=== PATIENT | male | born 1950 | race Caucasian/White ===

== ENCOUNTER 2017-08-07 08:04 | Inpatient (IN) ==
--- NOTE | 2017-08-07 08:23 | EKG Report ---
Test Performed on : 08/07/2017 08:18:11 AM Test Reason : AMS Blood Pressure : / mmHG Vent. Rate : 084 BPM Atrial Rate : 084 BPM P-R Int : 184 ms QRS Dur : 096 ms QT Int : 390 ms P-R-T Axes : 030 -28 037 degrees QTc Int : 460 ms Normal sinus rhythm. Normal ECG No previous ECGs available Unconfirmed Result
--- NOTE | 2017-08-07 08:44 | Diag Imaging Result Doc PS360 ---
EXAM: CT HEAD W/O CONTRAST HISTORY: AMS TECHNIQUE: CT brain without contrast. Dose reduction protocol. COMPARISON: None. FINDINGS: No parenchymal hemorrhage. No epidural or subdural hematoma. No subarachnoid hemorrhage. No mass identified on this noncontrasted exam. No hydrocephalus. There is diffuse atrophy. Mild microvascular ischemic changes. No sinus opacification. IMPRESSION: 1.No hemorrhage 2.Atrophy with mild microvascular changes Electronically signed by Asa Alvarez 08/07/2017 8:42 AM
--- NOTE | 2017-08-07 08:44 | Diag Imaging Result Doc PS360 ---
EXAM: CHEST-1 VIEW HISTORY: AMS TECHNIQUE: Single view COMPARISON: None. FINDINGS: The lungs are well expanded. The heart is not enlarged. The vessels are not distended. There are no infiltrates. No effusion identified. IMPRESSION: Negative exam.. Electronically signed by Asa Alvarez 08/07/2017 8:42 AM
[2017-08-07 08:56] LABS: MANUAL DIFF NEEDED? NO
[2017-08-07 08:58] LABS: BASO% 0.4 % (0.0-0.8); EOS# 0.11 X1000 (0.0-0.7); HEMATOCRIT 47.7 % (42.0-52.0); HEMOGLOBIN 16.9 g/dL (14.0-18.0); IMM GRAN# 0.01 X1000 (0.0-0.04); IMM GRAN% 0.2 % (0.0-0.5); LYMPH# 1.23 X1000 (1.2-3.4); LYMPH% 22.7 % (20.5-51.1); MCH 31.3 PG (27-31); MCHC 35.4 g/dL (33-37); MCV 88.3 FL (81-99); MONO# 0.47 X1000 (0.11-0.59); MONO% 8.7 % (1.7-9.3); PLT 152 X1000 (130-400)
[2017-08-07 09:02] LABS: URINE CULTURE PL NEEDED? NO
[2017-08-07 09:06] LABS: UR AMPHETAMINES QUAL NONE DETECTED (NONE DETECT); UR BARBITUATES QUAL NONE DETECTED (NONE DETECT); UR BENZODIAZEPIN QUAL NONE DETECTED (NONE DETECT); UR CANNABINOIDS QUAL NONE DETECTED (NONE DETECT); UR COCAINE QUAL NONE DETECTED (NONE DETECT); UR MDMA QUAL NONE DETECTED (NONE DETECT); UR METHADONE QUAL NONE DETECTED (NONE DETECT); UR METHAMPHETAMINE QUAL NONE DETECTED (NONE DETECT); UR OPIATES QUAL NONE DETECTED (NONE DETECT); UR OXYCODONE QUAL NONE DETECTED (NONE DETECT); UR PCP QUAL NONE DETECTED (NONE DETECT); UR TCA QUAL NONE DETECTED (NONE DETECT)
[2017-08-07 09:12] LABS: INR 0.92 (0.86-1.15); PROTIME 13.1 Seconds (12.1-15.5)
[2017-08-07 09:13] LABS: PTT PL 25.2 Seconds (22.6-43.9)
[2017-08-07 09:19] LABS: AGAP 14; ALBUMIN 4.8 g/dL (3.5-5.0); ALKALINE PHOSPHATASE 54 U/L (32-122); BUN 8 mg/dL (8-22); CALCIUM 9.3 mg/dL (8.8-10.2); CHLORIDE 101 mmol/L (98-107); CK PROFILE 115 U/L (24-204); COSMO 279; GOT 19 U/L (10-34); GPT 15 U/L (10-44); POTASSIUM 3.8 mmol/L (3.5-5.1); SODIUM 141 mmol/L (136-145); TCO2 26 mmol/L (25-35); TOTAL PROTEIN 7.7 g/dL (6.3-8.3)
[2017-08-07 09:20] LABS: BILIRUBIN URINE NEGATIVE (NEGATIVE); BLOOD URINE NEGATIVE (NEGATIVE); CLARITY CLEAR (CLEAR); COLOR YELLOW; GLUCOSE URINE NEGATIVE (NEGATIVE); LEUKOCYTES URINE NEGATIVE (NEGATIVE); NITRITE URINE NEGATIVE (NEGATIVE); PROTEIN URINE NEGATIVE (NEGATIVE); SP GRAVITY URINE 1.005; UROBILINOGEN URINE NORMAL
[2017-08-07 09:21] LABS: URINE EPITHELIAL CELLS <10 /HPF (<10); URINE SOURCE CLEAN CATCH
--- NOTE | 2017-08-07 09:32 | PROVIDER DOCUMENTATION ---
This chart was entered by Marline Cardenas Scribe, acting as scribe for Gala Macias MD. HPI-Neurological Disorder - General Chief Complaint: Stroke-Like Symptoms Stated Complaint: STROKE LIKE SX Time Seen by Provider: 08/07/17 08:12 Source: patient Allergies/Adverse Reactions: Patient Allergies Allergy/AdvReac Type Severity Reaction Status Date / Time No Known Allergies Allergy Verified 08/07/17 09:04 - History of Present Illness-Neuro Nature of Presenting Problem: Pt is a 67 y/o M presents to the ED with left side weakness. Pt states symptoms started last night at 2030. Pt states was sitting on the couch and could not get up due to weakness. Pt states went to bed and woke this am with worsening weakness. Pt denies headache. Headache Location: denies: frontal, temporal, occipital, parietal, global Severity: reports: mild Onset/Duration: reports: last night (2029) Timing: reports: still present, getting worse Context: reports: other (left side weakness) Character of Altered Mental Status: reports: N/A Any recent trauma/injury?: reports: none Character of Deficits: reports: new weakness New weakness or altered sensation location:: reports: LUE, LLE Cognitive Baseline: alert, oriented x3 Gait Baseline: walks without assistance Associated Symptoms: reports: denies symptoms Similar Symptoms Previously?: Yes (present since last night ) Recently seen or treated by another doctor?: No Review of Systems - Adult - REVIEW OF SYSTEMS - ADULT Constitutional: reports: no symptoms reported Eyes: reports: no symptoms reported Ears, Nose, Mouth & Throat: reports: no symptoms reported Cardiovascular: reports: no symptoms reported Respiratory: reports: no symptoms reported Gastrointestinal: reports: no symptoms reported Genitourinary: reports: no symptoms reported Musculoskeletal: reports: muscle weakness (LUE and LLE). denies: back pain, joint pain, neck pain Integumentary: reports: no symptoms reported Neurological: reports: no symptoms reported Psychiatric: reports: no symptoms reported Endocrine: reports: no symptoms reported Hematologic/Lymphatic: reports: no symptoms reported Allergic/Immunologic: reports: no symptoms reported All Other Systems: Reviewed and Negative Past History - Adult - PAST MEDICAL HISTORY-ADULT Review of Records: reports: Nursing Assessment Review, Medications Reviewed, Social history reviewed & non-contributory. Major Childhood Illnesses: reports: denies history Cardiovascular: reports: denies history Respiratory: reports: denies history Gastrointestinal: reports: denies history Obstetrical/Gynecological: reports: denies history Genitourinary: reports: denies history Musculoskeletal: reports: denies history Neurological: reports: denies history Endocrine/Immune: reports: denies history Other Conditions: reports: denies history - PRIOR SURGERIES/PROCEDURES Surgical/Procedure History: reports: hernia repair - IMMUNIZATION STATUS Childhood Immunizations: See Nurse Assessment Flu Vaccine: See Nurse Assessment - FAMILY HISTORY Family History: reviewed, not pertinent - SOCIAL HISTORY Smoking: quit greater than 1 year, cigarettes Substance Use: denies Living Situation: family Physical Exam- Neurological - Physical Exam-Neuro Initial Vital Signs Reviewed: Yes General Appearance: appears well, alert, no apparent distress. negative: lethargic, slow to respond Eye Exam: bilateral eye: normal inspection, PERRL, EOMI HENMT: normocephalic/atraumatic. negative: dental decay, pharyngeal erythema Head Injury: no evidence of injury. negative: ecchymosis, lacerations Neck: normal inspection. negative: lymphadenopathy, tender lateral Respiratory: chest non-tender, lungs clear, normal breath sounds. negative: crackles, stridor Cardiovascular: normal peripheral pulses, regular rate, rhythm. negative: tachycardia, systolic murmur Abdominal Exam: normal bowel sounds, non tender, soft. negative: guarding, rebound Lymphatic: no adenopathy. negative: enlargement, streaking Extremity: normal inspection. 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 negative: abnormal speech, facial droop Coordination/Gait: normal gait. negative: abnormal gait Motor/Sensory: no motor deficit, no sensory deficit, pronator drift (L). negative: pronator drift (R), sensory deficit, weak motor strength RUE, weak motor strength LUE, weak motor strength RLE, weak motor strength LLE Neurologic: grossly normal. negative: aphasia, facial droop Integumentary: normal color, normal turgor, warm/dry. negative: diaphoresis, ecchymosis, erythema, laceration(s), rash Psych/Mental Status: normal mood/affect, oriented x 3. negative: paranoid, tearful Progress - PLAN OF CARE/RESULTS Progress/Plan/Lab Results: Vital Signs - 8 hr 08/07/17 08:06 Temperature 97.6 F Pulse Rate 91 H Respiratory Rate 20 Blood Pressure 190/107 O2 Sat by Pulse Oximetry 95 Laboratory Results - last 24 hr 08/07/17 08/07/17 08/07/17 08:40 08:40 08:45 WBC RBC Hgb Hct MCV MCH MCHC RDW Std Deviation Plt Count MPV Immature Gran % (Auto) Neut % (Auto) Lymph % (Auto) [place] % (Auto) Eos % (Auto) Baso % (Auto) Immature Gran # (Auto) Neut # (Auto) Lymph # (Auto) [place] # (Auto) Eos # (Auto) Baso # (Auto) PT INR APTT (Factor Assay) Sodium 141 Potassium 3.8 Chloride 101 Carbon Dioxide 26 Anion Gap 14 BUN 8 Creatinine 0.8 Estimated GFR/1.73 m2 > 60 BUN/Creatinine Ratio 10 Glucose 90 Calculated Osmolality 279 Calcium 9.3 Total Bilirubin 1.60 H AST 19 ALT 15 Alkaline Phosphatase 54 Creatine Kinase 115 Troponin T Total Protein 7.7 Albumin 4.8 Globulin 3.0 Albumin/Globulin Ratio 2.0 Plasma Lactate Urine Source CLEAN CATCH Urine Color YELLOW Urine Clarity CLEAR Urine pH 7.0 Ur Specific [place] 1.005 Urine Protein NEGATIVE Urine Ketones NEGATIVE Urine Blood NEGATIVE Urine Nitrite NEGATIVE Urine Bilirubin NEGATIVE Urine Urobilinogen NORMAL Urine WBC NEGATIVE Ur Epithelial Cells <10 Urine Glucose NEGATIVE Urine Opiates Screen NONE DETECTED Ur Oxycodone Screen NONE DETECTED Urine Methadone Screen NONE DETECTED Ur Barbituates Screen NONE DETECTED Ur Tricyclics Screen NONE DETECTED Ur Phencyclidine Scrn NONE DETECTED Ur Amphetamines Screen NONE DETECTED U Methamphetamines Scrn NONE DETECTED Urine MDMA Screen NONE DETECTED U Benzodiazepines Scrn NONE DETECTED Urine Cocaine Screen NONE DETECTED U Cannabinoids Screen NONE DETECTED Plasma/Serum Ethyl Alc 08/07/17 08/07/17 08/07/17 08:45 08:45 08:45 WBC RBC Hgb Hct MCV MCH MCHC RDW Std Deviation Plt Count MPV Immature Gran % (Auto) Neut % (Auto) Lymph % (Auto) [place] % (Auto) Eos % (Auto) Baso % (Auto) Immature Gran # (Auto) Neut # (Auto) Lymph # (Auto) [place] # (Auto) Eos # (Auto) Baso # (Auto) PT INR APTT (Factor Assay) Sodium Potassium Chloride Carbon Dioxide Anion Gap BUN Creatinine Estimated GFR/1.73 m2 BUN/Creatinine Ratio Glucose Calculated Osmolality Calcium Total Bilirubin AST ALT Alkaline Phosphatase Creatine Kinase Troponin T < 0.010 Total Protein Albumin Globulin Albumin/Globulin Ratio Plasma Lactate 1.8 Urine Source Urine Color Urine Clarity Urine pH Ur Specific [place] Urine Protein Urine Ketones Urine Blood Urine Nitrite Urine Bilirubin Urine Urobilinogen Urine WBC Ur Epithelial Cells Urine Glucose Urine Opiates Screen Ur Oxycodone Screen Urine Methadone Screen Ur Barbituates Screen Ur Tricyclics Screen Ur Phencyclidine Scrn Ur Amphetamines Screen U Methamphetamines Scrn Urine MDMA Screen U Benzodiazepines Scrn Urine Cocaine Screen U Cannabinoids Screen Plasma/Serum Ethyl Alc 08/07/17 08/07/17 08:45 08:45 WBC 5.43 RBC 5.40 Hgb 16.9 Hct 47.7 MCV 88.3 MCH 31.3 H MCHC 35.4 RDW Std Deviation 12.7 Plt Count 152 MPV 11.0 H Immature Gran % (Auto) 0.2 Neut % (Auto) 66.0 Lymph % (Auto) 22.7 [place] % (Auto) 8.7 Eos % (Auto) 2.0 Baso % (Auto) 0.4 Immature Gran # (Auto) 0.01 Neut # (Auto) 3.59 Lymph # (Auto) 1.23 [place] # (Auto) 0.47 Eos # (Auto) 0.11 Baso # (Auto) 0.02 PT 13.1 INR 0.92 APTT (Factor Assay) 25.2 Sodium Potassium Chloride Carbon Dioxide Anion Gap BUN Creatinine Estimated GFR/1.73 m2 BUN/Creatinine Ratio Glucose Calculated Osmolality Calcium Total Bilirubin AST ALT Alkaline Phosphatase Creatine Kinase Troponin T Total Protein Albumin Globulin Albumin/Globulin Ratio Plasma Lactate Urine Source Urine Color Urine Clarity Urine pH Ur Specific [place] Urine Protein Urine Ketones Urine Blood Urine Nitrite Urine Bilirubin Urine Urobilinogen Urine WBC Ur Epithelial Cells Urine Glucose Urine Opiates Screen Ur Oxycodone Screen Urine Methadone Screen Ur Barbituates Screen Ur Tricyclics Screen Ur Phencyclidine Scrn Ur Amphetamines Screen U Methamphetamines Scrn Urine MDMA Screen U Benzodiazepines Scrn Urine Cocaine Screen U Cannabinoids Screen Plasma/Serum Ethyl Alc Orders Category Date Time Status Cardiac Monitoring DIRECTED Care 08/07/17 08:13 Active Finger Stick Blood Sugar (ED) DIRECTED Care 08/07/17 08:13 Active Saline Loc NOW Care 08/07/17 08:13 Active CHEST-1 VIEW [RAD] Stat Exams 08/07/17 08:[address] HEAD W/O CONTRAST [CT] Stat Exams 08/07/17 08:14 Completed ALCOHOL BLOOD Stat Lab 08/07/17 08:45 Completed CBC WITH ELECTRONIC DIFF [HEME] Stat Lab 08/07/17 08:45 Completed CK PROFILE [SP CHEM] Stat Lab 08/07/17 08:45 Completed COMPREHENSIVE METABOLIC PANEL [CHEM] Stat Lab 08/07/17 08:45 Completed LACTATE, PLASMA [CHEM] Stat Lab 08/07/17 08:45 Com[address]IME WITH INR PL [COAG] Stat Lab 08/07/17 08:[address] [COAG] Stat Lab 08/07/17 08:45 Completed TROPONIN T Stat Lab 08/07/17 08:[address] W/POSS RFLX CULT [URINALYSIS] Stat Lab 08/07/17 08:40 Completed URINE DRUG SCREEN PL Stat Lab 08/07/17 08:40 Completed Pulse Oximetry Stat Oth 08/07/17 08:13 Active EKG [EKG] Stat Ther 08/07/17 08:13 Draft Result Diagrams: 08/07/17 08:45 08/07/17 08:45 - EKG 1 Time of EKG reading by physician:: 08:18 EKG Read and Signed by:: Gala Macias EKG Interpretation (*Must complete 3 of following elements*): Normal Rate: 84 Rhythm: normal sinus rhythm Comments: normal ECG - XRAY 1 XRAY Study: Chest Impression: Normal XRAY Interpretation: negative exam - CT/MRI 1 CT Study: Head Impression: Abnormal (atrophy with mild microvascular changes) CT Results: no hemorrhage - CONSULTS/PCP/HOSPITALIST Notification #1 *Consult/PCP/Hospitalist*: Dr. Schroeder Time Discussed: 09:29 Reason/Comments: Dr. Macias consulted with Dr. Schroeder about Pt Consult Disposition: Admit Departure - Departure Date of Disposition Decision: 08/07/17 Time of Disposition Decision: 09:29 DIAGNOSIS: TIA (transient ischemic attack), HTN (hypertension) Disposition: ADMITTED INPATIENT 09 Certified Medical Emergency: Emergent Condition: Stable Additional Freetext Instructions: ED Follow Up Instructions: You have been treated by a care provider in the Emergency Department. These instructions are being provided to you so you can have an understanding of how to care for yourself upon discharge. Upon discharge from the Emergency Department, you are responsible for making arrangements for follow-up care by a physician of your choice. Take all prescribed medications as directed. Return to the Emergency Department immediately for any new or worsening symptoms. You may call the Physician Referral phone number at [phone] to obtain a list of Physicians who are taking new patients. Referrals and Follow-Ups: None,PCP [Primary Care Provider] - - Critical Care Note This patient required my direct & personal management of CC.: Yes Total Time (mins): 30 Critical Care Statement: This patient required my direct personal management to treat or rule out processes, the absence of which, could potentiallly result in sudden, clinically significant life or limb threatening deterioration. Attestation - Physician/ KIRAN Attestation Patient care was provided by Advanced Practice Provider:: No The physician spent face to face time with patient:: Yes Advanced Practice Provider documentation review:: Supervising physician onsite and consulted in the evaluation and care of this patient. The physician did have a face to face encounter with the patient. This chart was documented by the indicated scribe, (Marline Cardenas Scribe) and accurately reflects the services I performed and decisions made by me, Gala Macias MD, as attested by the provider's signature.
[2017-08-07] MEDS ORDERED: LOPRESSOR IV ONE (10:04)
[2017-08-07] MEDS ORDERED: TYLENOL PO PRN (12:18)
[2017-08-07] MEDS ORDERED: ZOFRAN IV PRN (12:18)
[2017-08-07] MEDS ORDERED: APRESOLINE IV PRN (12:25)
--- NOTE | 2017-08-07 15:55 | Extremity Venous Study ---
EXAM: Carotid Ultrasound HISTORY: htn, slurred speech, left side weakness TECHNIQUE: Grayscale, duplex, and color Doppler evaluation was performed of the carotid arteries bilaterally. COMPARISON: None. FINDINGS: There is no significant atherosclerotic plaque. There are no velocity elevations to suggest hemodynamically significant carotid artery stenosis. ICA/CCA ratios are within normal limits. Bilateral vertebral arterial flow is antegrade. IMPRESSION: No evidence for hemodynamically significant carotid artery stenosis. Estimated stenosis is less than 50% bilaterally. Electronically signed by Kaylene Andino 08/07/2017 3:53 PM
--- NOTE | 2017-08-07 18:56 | HISTORY AND PHYSICAL ---
CHIEF COMPLAINT: Left-sided weakness. HISTORY OF PRESENT ILLNESS: This is a 67-year-old male who presented to the emergency room complaining of left-sided weakness that began about 8:30 last night. He states that he was sitting on the couch and could not get up due to his weakness. Once he was be able to get up he went to bed and he woke up this morning with even worse weakness. He denied any headache, change in vision, difficulty swallowing. He did state that he feels like that his speech is not as clear as normal. He has been able to walk during this time just with caution due to weakness. CT of the head revealed no hemorrhage, parenchymal epidural or subdural, no subarachnoid hemorrhage, no mass identified, and no hydrocephalus. There is diffuse atrophy. He did have blood pressures of 190/107 range in the emergency room for which he was given Lopressor. Pressures did decrease to the 160 to 170s over 90s. It did increase a few hours later to the 200s over 70s range shortly after transfer to the floor. This did decrease after transfer was complete and blood pressures have been in the 150s over 70s to 90s since. PAST MEDICAL HISTORY: Denies. PAST SURGICAL HISTORY: Hernia repair. SOCIAL HISTORY: He denies alcohol, tobacco, or illicit drug use. ALLERGIES: No known drug allergies. HOME MEDICATIONS: Prostate formula vitamin, 81 mg aspirin. REVIEW OF SYSTEMS: A 14 point review of systems is discussed with patient with pertinent positives stated in HPI. He denied chest pain, palpitations, syncope, dizziness, change in vision, headache, any shortness of breath, cough, fever, chills, nausea, vomiting, diarrhea, constipation, black or bloody vomitus, black or bloody stools, any hematuria, dysuria, frequency, urgency. PHYSICAL EXAMINATION: GENERAL: This is a 67-year-old male who is sitting up in the bed, in no distress. VITAL SIGNS: Blood pressure is 157/91, with a heart rate of 71, respirations are 18, temperature is 98.1 degrees oral, with room air saturations being 98 to 100%. HEENT: Head is normocephalic, atraumatic. Pupils equal, round, react to light. EOMs are intact. Sclerae anicteric. Mucous membranes are moist. NECK: Supple with trachea midline. CARDIOVASCULAR: Regular rate and rhythm. S1 and S2 appreciated. PULMONARY: Breath sounds are clear. No increased work of breathing noted. GASTROINTESTINAL: Abdomen is soft, nontender, nondistended. Bowel sounds in all 4 quadrants. EXTREMITIES: No clubbing, cyanosis, or edema. Calves are nontender. Pulses are palpable x4. NEUROLOGIC: He is alert and oriented x3. He has no facial droop. Forehead is spared. No tongue or uvula deviation. He does have a slight left pronator drift with 5/5 right upper and right lower extremity and 4/5 left upper and lower extremity. LABS: WBC is 5.4, with hemoglobin 16.9, hematocrit 47.7, and platelets of 152,000. Sodium is 141, potassium 3.8, BUN 8, creatinine 0.8, with a glucose of 101. Urine drug screen is negative with blood alcohol none detected. CT scan of the head revealed no hemorrhage, no mass identified, atrophy with microvascular changes. ASSESSMENT: 1. Transient ischemic attack. 2. Hypertensive urgency. 3. Deep vein thrombosis prophylaxis and gastrointestinal prophylaxis. PLAN: He will be admitted to the hospital. Placed on telemetry. Neuro checks will be performed. We will obtain a carotid Doppler as well as an echocardiogram. Physical therapy will be consulted for left-sided weakness. We will obtain CBC, CMP, and TSH in the morning. We will give hydralazine IV q.4 hours p.r.n. for pressure over 180/100, allowing for permissive hypertension for the first 24 hours. We will start Lipitor 40 at bedtime. Further treatments pending hospital course. Dictated by JACKY Muniz for Janes Schroeder MD cc: JACKY Muniz MD
--- NOTE | 2017-08-07 19:19 | PROGRESS NOTE ---
DATE: 08/07/2017 SUBJECTIVE: Patient is seen and examined by myself. Full note dictated by nurse practitioner. Patient notes that he has been told in the past that he had high blood pressure, but states that he really has not followed up anywhere and has not checked his blood pressure. He presented to the emergency department with numbness in his left face and left arm. States this has really not gotten any better. He states that he is weak. He actually had difficulty standing earlier. OBJECTIVE: CV: Regular rate. Chest: Clear. Neuro: He is awake, alert, oriented. Lungs: He is in no respiratory distress. 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 PLAN: We will admit him to the hospital. Carotid has already been done prior to my seeing him and is reported as negative. Blood pressures are much improved, was 217/74 initially, currently 153/91. We will continue to follow his blood pressures. Check cholesterol. Place him on Lipitor and further orders as needed. We will consult physical therapy and consider rehab versus [facility]. cc: Janes Schroeder MD
[2017-08-07] MEDS ORDERED: LIPITOR PO SCH (21:00)
[2017-08-08 05:28] LABS: HEMATOCRIT 41.8 % (42.0-52.0); HEMOGLOBIN 14.9 g/dL (14.0-18.0); MCH 31.9 PG (27-31); MCHC 35.6 g/dL (33-37); MCV 89.5 FL (81-99); MPV 11.2 FL (7.4-10.4); RBC 4.67 XMIL (4.7-6.1)
[2017-08-08 06:01] LABS: AGAP 10; ALBUMIN 3.9 g/dL (3.5-5.0); ALKALINE PHOSPHATASE 40 U/L (32-122); BUN 15 mg/dL (8-22); CALCIUM 8.7 mg/dL (8.8-10.2); CHLORIDE 105 mmol/L (98-107); COSMO 282; GOT 14 U/L (10-34); GPT 11 U/L (10-44); POTASSIUM 3.6 mmol/L (3.5-5.1); SODIUM 141 mmol/L (136-145); TCO2 26 mmol/L (25-35); TOTAL PROTEIN 6.2 g/dL (6.3-8.3)
[2017-08-08] MEDS ORDERED: PRILOSEC PO SCH (07:00)
[2017-08-08 07:04] LABS: HDL 39 mg/dL (35-55); LDL 121 mg/dL; TRIGLYCERIDES 86 mg/dL (39-160); VLDL 17 mg/dL
[2017-08-08] MEDS ORDERED: ASPIRIN EC PO SCH (09:00)
[2017-08-08 11:53] VITALS: BP 163/82
--- NOTE | 2017-08-08 12:38 | Diag Imaging Result Doc PS360 ---
EXAM: MRI BRAIN W/O CONTRAST INDICATION: CVA COMPARISON: CT head dated 08/07/2017. No prior brain MRIs available for comparison. FINDINGS: There is a focal acute infarct involving the periventricular white matter on the right extending inferiorly to the posterior margin of the basal ganglion. This cannot be identified on yesterday's CT. It certainly may have been present but hyperacute at that time making an undetectable by CT. There is corresponding T2/FLAIR signal hyperintensity associated with the infarct. There is no discrete intracranial mass, mass effect, or intracranial hemorrhage. The surrounding soft tissues and bony structures are essentially unremarkable. IMPRESSION: Acute focal infarct involving the periventricular white matter on the right and extending to the right basal ganglion as described above. Electronically signed by Tarun Villeda 08/08/2017 12:36 PM
--- NOTE | 2017-08-08 14:07 | DISCHARGE SUMMARY ---
ADMISSION DATE: 08/07/2017 DISCHARGE DATE: DIAGNOSES: 1. Acute right cerebrovascular accident involving the periventricular white matter extending to the right basal ganglion. 2. Hypertensive urgency. 3. Left sided weakness. DIAGNOSTICS: On 08/08/2017, brain MRI revealed a focal acute infarct involving the periventricular white matter on the right, extending inferiorly to the posterior margin of the basal ganglion, which was not identified on yesterday's CT. It may have been present, but hyperacute at that time, making it undetectable by CT. There is corresponding T2 flair, signal hyperintensity associated with infarct, with no discrete intracranial mass, mass effect, or intracranial hemorrhage. The surrounding soft tissues and bony structures are essentially unremarkable. On 08/07/2017, carotid Doppler revealed no evidence for hemodynamically significant carotid artery stenosis. Estimated stenosis is less than 50% bilaterally. On 08/07/[address] revealed no hemorrhage. Atrophy with microvascular changes. HOSPITAL COURSE: Mr. Cuadra resented to the emergency room having left-sided weakness, stating that the night before visit stated he was sitting on the couch and could not get up due to profound left-sided weakness. After awhile he was able to get up. He went to bed and he woke up with an increase in his left-sided weakness. He was able to walk, although he was very weak and had difficulty with balance, having to hold onto the ortega and furniture. He could only go to short amounts. CT revealed no hemorrhage or mass. Bilateral carotid Dopplers revealed less than 50% stenosis. On arrival, he did a pressures in the 190s/107 range, for which she was given IV Lopressor. Pressures did decrease to 160 to 170s/90s. They have been 150s/70-90s and pretty well consistent since. He complains of his voice sounding funny and his speech being abnormal. This is difficulty to ascertain per the staff, as we have no normal state to compare to. He was evaluated by physical therapy and at this time he was unable to maintain his balance. He was uncoordinated, with the feeling that he could not tell up from down, nor left from right. He was evaluated by [facility] and it was felt that he was a candidate and therefore he is going for rehab. DISCHARGE PHYSICAL EXAMINATION: Cardiovascular: Regular rate and rhythm. S1, S2 appreciated. Pulmonary: Breath sounds are clear. No increased work of breathing noted. Gastrointestinal: Abdomen is soft, nontender, nondistended. Bowel sounds in all 4 quadrants. Extremities: No clubbing, cyanosis, or edema. Calves nontender. Pulses are palpable x4. Neurologic: He is alert and oriented x3. He has no facial droop. Forehead is spared. No tongue or uvula deviation. He does have a slight pronator drift with 5/5 right upper and lower strength and 4/5 left upper and lower. Discharge Vital Signs: Blood pressure is 160/80, with a heart rate of 84, respirations 17, temperature 97.8 degrees oral, with room air saturations 98%. DISCHARGE ACTIVITY: As per physical therapy and [facility] protocol. DISCHARGE MEDICATIONS: 1. Enteric-coated aspirin 81 mg daily. 2. Lipitor 40 mg at bedtime. 3. Prilosec 40 mg daily. 4. Norvasc 5 p.o. daily. The patient is being allowed permissive hypertension for the next 24 hours at least, accepting blood pressures up to 180/100. Norvasc will be started in the morning. He is being discharged to [facility] in stable condition via EMS transport. TIME SPENT: This is a greater than 30 minute discharge. Dictated by JACKY Muniz for Janes Schroeder MD cc: JACKY Muniz MD
--- NOTE | 2017-08-09 05:09 | PROGRESS NOTE ---
DATE: 08/08/2017 SUBJECTIVE: Patient without any complaints this morning. States he is still having some weakness, still having some nausea but states this is fine. Denies any change in his weakness. Denies any chest pain or palpitations. States that he is having some numbness on his face but he is swallowing fine. PHYSICAL: Vital Signs: He is awake, alert, oriented. He is in no distress. Vital signs reviewed. He is afebrile. Blood pressure is stable. Heart rate 90s. Respiratory 20. General: Patient is awake, alert, oriented. Pleasant to talk with. Neck: Supple. Cardiovascular: Regular rate. Chest: Relatively clear. Abdomen: Soft, nondistended. Extremities: Moves all extremities. Neurologic: No focal changes from yesterday's exam. He does have some slight slurred speech. No facial drooping. 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 Slightly decreased on the left compared to the right. ASSESSMENT: 1. Hypertension. Patient has not been controlling his blood pressure at home. I did place him on medications here. 2. Acute cerebrovascular accident. 3. Left-sided weakness secondary to his acute cerebrovascular accident. PLAN: We will keep patient in the hospital. Get physical therapy today. [facility]. Further orders as needed. cc: Janes Schroeder MD
--- NOTE | 2017-08-09 06:09 | ECHO REPORT ---
ORDER DATE: 08/07/2017 MEASUREMENTS: 1. Left ventricular end-diastolic diameter 5.5. 2. End-Systolic diameter 3.6. 3. Septal thickness 1.1. 4. Posterior wall thickness 1.1. 5. Aortic root 4.3. 6. Left atrium 4.7. SUMMARY: 1. Adequate quality study. 2. Very mild sclerosis of trileaflet, aortic valve demonstrated, with normal aortic valve opening evident. There is mild aortic regurgitation. Mitral, tricuspid, and pulmonic valves are without structural abnormality, with trace mitral regurgitation, trace tricuspid regurgitation, and trace pulmonic insufficiency. Estimated systolic PA pressure by Doppler is 35 mmHg. The aortic root is mildly enlarged. 3. Normal left ventricular dimensions suggested. Estimated left ejection fraction appears to be at least 60%. No regional wall motion abnormalities evident. Doppler suggests Grade 1 left ventricular diastolic dysfunction. Left atrium is mildly enlarged. Right atrium and right ventricle are normal in size with normal right ventricular systolic function. 4. No pericardial effusion. 5. Appearance of inferior vena cava suggests normal central venous pressure. CONCLUSIONS: 1. Very mild aortic valve sclerosis with mild aortic regurgitation. 2. Trace tricuspid regurgitation with estimated systolic PA pressure of 35 mmHg. 3. Normal left ventricular ejection fraction without wall motion abnormality evident. 4. Grade 1 left ventricular diastolic dysfunction suggested. 5. Mild aortic root enlargement. 6. Mild left atrial enlargement. cc: MD Angella Sheehan CRNP Gregory S. Cheatham, MD
[2017-08-09] MEDS ORDERED: NORVASC PO SCH (08:00)
== END 2017-08-08 16:48 ==
LOC: P.ED 08:04 → P.MEDSURG 09:37
PROVIDERS: ADMIT Family Medicine; ATTEND Family Medicine